=== PATIENT | male | born 1945 | race Hispanic/Latino ===

== ENCOUNTER → 2019-04-13 | Outpatient (CLI) | payer OTHER ==
[~2019-04-13] MED LIST: AMLO10TA7 PO; ASPI-555 PO; GLIP2.5T2 PO; LISI2.5T2 PO; METF-444 PO; PRAV40TA3 PO; PRAZ1CAP5 PO
== END | disposition home or self-care (01) ==
LOC: RAH 13:48
PROVIDERS: ATTEND Internal Medicine
DX: G31.89 Other specified degenerative diseases of nervous system (principal); R90.82 White matter disease, unspecified
CPT/HCPCS: 70450

== ENCOUNTER → 2019-08-02 | Outpatient (CLI) | payer OTHER ==
--- NOTE | 2019-08-02 11:20 | NUR ---
MBSS COMPLETED. -S/S OF ASPIRATION/PENETRATION. RECOMMEND MECHANICAL SOFT/CHOPPED, THIN LIQUIDS; PILLS WHOLE WITH LIQUIDS. Pt REPORTS HE IS CURRENTLY SEEING NEUROLOGIST AND LUMBER PLANER. SAFE SWALLOW PRECAUTIONS REVIEWED WITH Pt. GLAZIER APPRENTICE PROVIDED Pt WITH WRITTEN HANDOUT OF RESULTS AND RECOMMENDATIONS IN PORTUGUESE AND CHINESE. Addendum: 08/02/19 at 1125 by PETER SANTIAGO, [facility] Amended: Links added.
== END | disposition home or self-care (01) ==
LOC: RAH 09:35
PROVIDERS: ATTEND Internal Medicine Gastroenterology
DX: R13.12 Dysphagia, oropharyngeal phase (principal); I10 Essential (primary) hypertension; E11.9 Type 2 diabetes mellitus without complications; K21.9 Gastro-esophageal reflux disease without esophagitis
CPT/HCPCS: 74230; 92611

== ENCOUNTER 2020-07-31 09:24 | Observation (INO) | payer OTHER ==
[~2020-07-31] VITALS: Ht 180.3 cm; Wt 70.3 kg
[~2020-07-31 09:24] MED LIST changes: +AMLO-258 PO; -AMLO10TA7 PO; -ASPI-555 PO; +ASPI-556 PO
[2020-07-31 10:20] LABS: BASOPHILS % (AUTO) 0.3 % (0.0-5.0); EOSINOPHILS % (AUTO) 0.5 % (0.0-8.0); HEMATOCRIT 38.5 % (42-54); LYMPHOCYTES % (AUTO) 14.9 % (21.0-51.0); MEAN CORPUSCULAR HGB CONC 31.7 g/dL (32.0-36.0); MEAN CORPUSCULAR VOLUME 85.2 fL (79-99); MONOCYTES % (AUTO) 9.6 % (3.0-13.0); NEUTROPHILS % (AUTO) 74.4 % (40.0-77.0); PLATELET COUNT (AUTO) 176 K/uL (130-400); RED BLOOD CELL COUNT(AUTO) 4.52 MIL/uL (4.50-6.20); WHITE BLOOD COUNT (AUTO) 8.7 K/uL (4.8-10.8)
[2020-07-31 10:33] LABS: CREATININE 1.2 mg/dL (0.5-1.5); POTASSIUM 4.4 mmol/L (3.5-5.1)
[2020-07-31 10:36] LABS: INR 1.01 (0.85-1.15); PARTIAL THROMBOPLASTIN TIME 27.5 SEC (26.3-35.5); PROTHROMBIN TIME 10.9 SEC (9.6-11.6)
[2020-07-31 10:38] LABS: ALBUMIN 4.1 g/dL (3.5-5.0); BILIRUBIN,TOTAL 0.7 mg/dL (0.2-1.0); TOTAL PROTEIN, SERUM 7.5 g/dL (6.0-8.3)
[2020-07-31 11:52] LABS: APPEARANCE,URINE Clear (CLEAR); BILIRUBIN,URINE Negative (NEGATIVE); COLOR,URINE Yellow (YELLOW); GLUCOSE, URINE (UA) Negative (NEGATIVE); KETONES,URINE Trace mg/dL (NEGATIVE); LEUKOCYTE ESTERASE ,URINE Negative (NEGATIVE); NITRATE,URINE Negative (NEGATIVE); OCCULT BLOOD,URINE Negative (NEGATIVE); PROTEIN,URINE Trace mg/dL (NEGATIVE)
[2020-07-31 12:00] LABS: AMPHET/METH SCREEN,URINE NEGATIVE (NEGATIVE); BARBITURATE SCREEN, URINE NEGATIVE (NEGATIVE); BENZODIAZEPINES SCREEN,URINE NEGATIVE (NEGATIVE); CANNABINOID SCREEN,URINE NEGATIVE (NEGATIVE); COCAINE SCREEN,URINE NEGATIVE (NEGATIVE); OPIATE SCREEN,URINE NEGATIVE (NEGATIVE); PHENCYCLIDINE SCREEN,URINE NEGATIVE (NEGATIVE)
[2020-07-31 12:47] LABS: BACTERIA,URINE Few /HPF (None Seen); RBC,URINE 0-1 /HPF (0-1); SQUAMOUS EPITHELIAL CELL,UR 0-2 /HPF (0-2); WBC,URINE 0-1 /HPF (0-1)
[2020-07-31 16:41] VITALS: BP 149/74
[2020-07-31 19:00] VITALS: BP 127/58
[2020-07-31] MEDS ORDERED: FLUD0.1T2 PO (20:45)
[2020-07-31] MEDS ORDERED: ACET-66 PO (20:45)
[2020-07-31] MEDS ORDERED: OLME5TAB6 PO (20:45)
[2020-07-31] MEDS ORDERED: DEUT12TA PO (20:45)
[2020-07-31] MEDS ORDERED: BRIM5DRO4 OP (20:45)
[2020-07-31] MEDS ORDERED: FLUT16H NS (20:45)
[2020-07-31] MEDS ORDERED: ASPI-988 PO (20:45)
[2020-07-31] MEDS ORDERED: LATA2.5D14 OP (20:45)
[2020-07-31] MEDS ORDERED: POTA10CA44 PO (20:45)
[2020-07-31] MEDS ORDERED: PIND10TA2 PO (20:45)
[2020-07-31] MEDS ORDERED: FLUTICASONE PROPIONATE 50MCG/SPRAY 16 GM BOTTLE NS SCH (21:00)
[2020-07-31] MEDS: ATENOLOL 50 MG TABLET PO SCH (21:00)
[2020-07-31] MEDS ORDERED: BRIMONIDINE TARTRATE 0.2% 5 ML BOTTLE OP SCH (21:00)
[2020-07-31] MEDS: DEUTETRABENAZINE 12 MG PO SCH (21:00)
[2020-07-31] MEDS ORDERED: EXCEDRIN MIGRAINE PO SCH (21:00)
[2020-07-31] MEDS ORDERED: LATANOPROST 2.5 ML DROPS OP SCH (21:00)
[2020-07-31] MEDS ORDERED: ACETAMINOPHEN EXTRA STRENGTH 500 MG TABLET PO SCH (21:00)
[2020-07-31] MEDS: ATORVASTATIN CALCIUM 10 MG TABLET PO SCH (21:53)
[2020-07-31 23:20] VITALS: BP 137/66
[2020-08-01 03:00] VITALS: BP 134/55
[2020-08-01] MEDS: METFORMIN HCL 500 MG TABLET PO SCH ×2 (07:30→16:01)
[2020-08-01 08:32] VITALS: BP 128/54
[2020-08-01] MEDS: DEUTETRABENAZINE 12 MG PO SCH ×2 (09:00→19:44)
[2020-08-01] MEDS ORDERED: IOHEXOL 350 MG/ML 100ML INFUS..BTL IV ONE (11:35)
[2020-08-01 12:09] VITALS: BP 143/66
[2020-08-01 15:53] VITALS: BP 138/68
[2020-08-01] MEDS: ATENOLOL 50 MG TABLET PO SCH ×2 (16:00→19:44)
[2020-08-01] MEDS: POTASSIUM CHLORIDE 10 MEQ/TAB.SA PO SCH ×2 (16:01→16:03)
[2020-08-01] MEDS: LOSARTAN 50 MG TABLET PO SCH (16:01)
[2020-08-01] MEDS: ASPIRIN 81 MG EC TAB PO SCH (16:01)
[2020-08-01] MEDS: FLUDROCORTISONE ACETATE 0.1 MG TABLET PO SCH (16:02)
--- NOTE | 2020-08-01 16:32 | NUR ---
DCP CM met with pt and daughter in room discussed dc plans. Pt is independent prior to admission, lives at home with son who is a truck safety inspector mostly out, daughter lives close by. Pt has a cane. Denies any other equipments/services. Feels safe to go back home, son and daughter able to assist with transportation and needs as necessary. Daughter Juanita requesting provider, made are will inform Nehal ribeiro/AYDIN regarding request for provider at home. DC plan to home once stable. CM to contiue to follow up. Informed Nehal ribeiro/AYDIN of daughter's request for provider at home. As per Nehal will call pt and daughter in the morning. Addendum: 08/01/20 at 1636 by MARIAH WARD LVN CM Amended: Links added.
[2020-08-01 19:00] VITALS: BP 148/70
--- NOTE | 2020-08-01 19:00 | NUR ---
dr paulino informed of results of ct of head and neck, no orders received at this time.
[2020-08-01] MEDS: ATORVASTATIN CALCIUM 10 MG TABLET PO SCH (20:30)
[2020-08-02] VITALS: BP 133/62
[2020-08-02 04:00] VITALS: BP 145/70
[2020-08-02] MEDS: [UNRECOGNIZED DRUG - OTHER] MISC SCH ×4 (07:00→16:39)
[2020-08-02] MEDS: METFORMIN HCL 500 MG TABLET PO SCH ×2 (07:30→16:30)
[2020-08-02 08:00] VITALS: BP 163/70
[2020-08-02] MEDS: POTASSIUM CHLORIDE 10 MEQ/TAB.SA PO SCH ×2 (08:00→16:39)
[2020-08-02] MEDS: DEUTETRABENAZINE 12 MG PO SCH (08:18)
[2020-08-02] MEDS: ATENOLOL 50 MG TABLET PO SCH (08:24)
[2020-08-02] MEDS: ASPIRIN 81 MG EC TAB PO SCH (08:24)
[2020-08-02] MEDS: LOSARTAN 50 MG TABLET PO SCH (08:25)
[2020-08-02] MEDS: FLUDROCORTISONE ACETATE 0.1 MG TABLET PO SCH (08:25)
--- NOTE | 2020-08-02 09:19 | NUR ---
CONTACTED DR. LANGE RE POSSIBLE PT EVAL? BASED ON DR. JEONG ORDER AND STATE PATROL OFFICER NOTES RE MAX ASSIST TO [facility]. AWAITING RESPONSE
[2020-08-02 12:00] VITALS: BP 131/69
[2020-08-02 16:00] VITALS: BP 132/68
--- NOTE | 2020-08-02 17:00 | NUR ---
NOTE DISCHARGE INSTRUCTIONS GIVEN AT THIS TIME. REFER TO DC SUMMARY. HE IS TO GO TO DR LANGE WEDNESDAY AND SEE NEUROLOGIST OUTPATIENT FOR EEG OR POSSIBLY NEUROLOGIST IN [place] FOR ADJUSTMENT OF NEW MEDS.
== END 2020-08-02 18:10 | disposition home or self-care (01) ==
LOC: EDH 09:24 → EDHIP 13:00 → 3BH 16:09
PROVIDERS: ADMIT Internal Medicine; ATTEND Internal Medicine
DX: R55 Syncope and collapse (principal); I95.1 Orthostatic hypotension; G24.01 Drug induced subacute dyskinesia; I10 Essential (primary) hypertension; E11.9 Type 2 diabetes mellitus without complications; I25.10 Atherosclerotic heart disease of native coronary artery without angina pectoris; E78.5 Hyperlipidemia, unspecified; G20 Parkinson's disease; I63.9 Cerebral infarction, unspecified; G47.52 REM sleep behavior disorder; S80.01XA Contusion of right knee, initial encounter; S50.11XA Contusion of right forearm, initial encounter; S70.01XA Contusion of right hip, initial encounter; Z95.0 Presence of cardiac pacemaker; Z95.5 Presence of coronary angioplasty implant and graft; Z79.899 Other long term (current) drug therapy; W18.39XA Other fall on same level, initial encounter; Y93.01 Activity, walking, marching and hiking; Y92.002 Bathroom of unspecified non-institutional (private) residence as the place of occurrence of the external cause
CPT/HCPCS: 36415; 70450; 70496; 70498; 71045; 73090; 73502; 80053; 80305; 81001; 82550; 82948 ×8; 83721; 84484; 85025; 85610; 85730; 93005; 99285; G0378 ×12; Q9967

== ENCOUNTER → 2021-02-04 | Outpatient (CLI) | payer OTHER ==
[~2021-02-04] VITALS: Ht 180.3 cm; Wt 72.6 kg
[~2021-02-04] MED LIST changes: +ACET-66 PO; -AMLO-258 PO; +ASPI-988 PO; +BRIM5DRO4 OP; +DEUT12TA PO; +FLUD0.1T2 PO; +FLUT16H NS; -GLIP2.5T2 PO; +LATA2.5D14 OP; -LISI2.5T2 PO; +OLME5TAB6 PO; +PIND10TA2 PO; +POTA10CA44 PO; +REGADENOSON 0.4 MG/5 ML PF SYG IVP SCH
== END | disposition home or self-care (01) ==
LOC: SHCH 08:14
PROVIDERS: ATTEND Internal Medicine Cardiovascular Disease
DX: R07.9 Chest pain, unspecified (principal)
CPT/HCPCS: 78452; 93017; 96374; A9500 ×2

== ENCOUNTER 2021-04-22 05:40 | Day surgery (SDC) | payer OTHER ==
[2021-04-21 10:52] LABS: BASOPHILS % (AUTO) 0.3 % (0.0-5.0); HEMATOCRIT 38.2 % (42-54); LYMPHOCYTES % (AUTO) 22.3 % (21.0-51.0); MEAN CORPUSCULAR HEMOGLOBIN 27.9 pg (27.0-33.0); MEAN CORPUSCULAR HGB CONC 31.9 g/dL (32.0-36.0); MEAN CORPUSCULAR VOLUME 87.2 fL (79-99); MONOCYTES % (AUTO) 9.2 % (3.0-13.0); PLATELET COUNT (AUTO) 161 K/uL (130-400); RED BLOOD CELL COUNT(AUTO) 4.38 MIL/uL (4.50-6.20); RED CELL DISTRIBUTION WIDTH 14.2 % (11.0-15.5); WHITE BLOOD COUNT (AUTO) 6.4 K/uL (4.8-10.8)
[2021-04-21 10:54] LABS: APPEARANCE,URINE Clear (CLEAR); BILIRUBIN,URINE Negative (NEGATIVE); COLOR,URINE Yellow (YELLOW); GLUCOSE, URINE (UA) TRACE mg/dL (NEGATIVE); KETONES,URINE Trace mg/dL (NEGATIVE); LEUKOCYTE ESTERASE ,URINE Moderate (NEGATIVE); NITRATE,URINE Negative (NEGATIVE); OCCULT BLOOD,URINE Negative (NEGATIVE); PH,URINE 5.5 (5.0-8.0); PROTEIN,URINE Negative (NEGATIVE)
[2021-04-21 11:01] LABS: CREATININE 1.2 mg/dL (0.5-1.5); POTASSIUM 4.6 mmol/L (3.5-5.1)
[2021-04-21 11:21] LABS: BACTERIA,URINE Rare /HPF (None Seen); RBC,URINE 0-1 /HPF (0-1)
[2021-04-21 11:22] LABS: CALCIUM OXALATE CRYSTALS,UR Few /LPF (None Seen); SQUAMOUS EPITHELIAL CELL,UR Rare /HPF (0-2)
[2021-04-21 11:29] LABS: INR 1.02 (0.85-1.15); PROTHROMBIN TIME 11.1 SEC (9.6-11.6)
[2021-04-21 11:30] LABS: PARTIAL THROMBOPLASTIN TIME 27.4 SEC (26.3-35.5)
[2021-04-21 12:41] VITALS: BP 127/70
[~2021-04-22] VITALS: Ht 180.3 cm; Wt 73.3 kg
[2021-04-22] VITALS (17 sets, daily range): BP systolic 121–182; BP diastolic 59–89
[~2021-04-22 05:40] MED LIST changes: -ACET-66 PO; -ASPI-988 PO; -BRIM5DRO4 OP; -DEUT12TA PO; +DEUT9TAB PO; -FLUT16H NS; +NAPR-1023 PO; -OLME5TAB6 PO; -PRAZ1CAP5 PO; -REGADENOSON 0.4 MG/5 ML PF SYG IVP SCH
[2021-04-22] MEDS ORDERED: 0.9%NACL 1000ML 1,000 ML IV SCH ×2 (08:00→10:30)
[2021-04-22] MEDS ORDERED: NICARDIPINE 25MG INJ IV ONE (09:02)
[2021-04-22] MEDS ORDERED: IOHEXOL-350 50ML VIAL IV ONE (09:02)
[2021-04-22] MEDS ORDERED: NITROGLYCERIN 2 MG VIAL IV ONE (09:02)
[2021-04-22] MEDS ORDERED: HEPARIN 10,000 UNIT/10ML (1,000 UNIT/ML) VIAL ONE (09:02)
[2021-04-22] MEDS ORDERED: LIDOCAINE HCL 400MG/20ML VIAL ONE (09:03)
[2021-04-22] MEDS ORDERED: MIDAZOLAM HCL 1 MG/ML 2ML VIAL ONE (09:03)
[2021-04-22] MEDS ORDERED: FENTANYL CITRATE PF 50 MCG/1 ML 2ML VIAL ONE (09:03)
[2021-04-22] MEDS ORDERED: IOHEXOL 350 MG/ML 100ML INFUS..BTL IV ONE (09:05)
[2021-04-22] MEDS ORDERED: SODIUM BICARB 50MEQ 50ML VIAL 50 ML ONE (09:08)
[2021-04-22] MEDS ORDERED: LABETALOL 20MG VIAL IV ONE (09:50)
[2021-04-22] MEDS ORDERED: ENALAPRILAT DIHYDRATE 1.25 MG/ML 2ML VIAL IVP ONE ×2 (10:07→10:14)
[2021-04-22] MEDS ORDERED: DEXTROSE 50%-WATER 50 ML DISP.SYRIN IV PRN (10:30)
[2021-04-22] MEDS ORDERED: GLUCAGON 1MG KIT 1 MG ML IM PRN (10:30)
[2021-04-22] MEDS ORDERED: INSULIN HUMULIN R 100 UNIT/ML 3ML SQ SCH (11:30)
[2021-04-22] MEDS ORDERED: HYDRALAZINE 20MG/ML VIAL ONE (12:49)
[2021-04-22] MEDS ORDERED: HYDRALAZINE 20MG/ML VIAL IV SCH (14:00)
== END 2021-04-22 15:30 | disposition home or self-care (01) ==
LOC: DAH 05:40
PROVIDERS: ATTEND Internal Medicine Cardiovascular Disease
DX: I25.119 Atherosclerotic heart disease of native coronary artery with unspecified angina pectoris (principal); T82.855A Stenosis of coronary artery stent, initial encounter; I25.82 Chronic total occlusion of coronary artery; I11.0 Hypertensive heart disease with heart failure; I50.22 Chronic systolic (congestive) heart failure; E11.9 Type 2 diabetes mellitus without complications; G20 Parkinson's disease; I49.5 Sick sinus syndrome; G47.33 Obstructive sleep apnea (adult) (pediatric); K21.9 Gastro-esophageal reflux disease without esophagitis; I25.2 Old myocardial infarction; E78.5 Hyperlipidemia, unspecified; Z79.899 Other long term (current) drug therapy; Z79.01 Long term (current) use of anticoagulants; Z95.5 Presence of coronary angioplasty implant and graft; Z79.82 Long term (current) use of aspirin; Z79.84 Long term (current) use of oral hypoglycemic drugs; Z82.49 Family history of ischemic heart disease and other diseases of the circulatory system; Y83.8 Other surgical procedures as the cause of abnormal reaction of the patient, or of later complication, without mention of misadventure at the time of the procedure
CPT/HCPCS: 36415; 71045; 80048; 81001; 82948 ×2; 85025; 85610; 85730; 87088; 93005; 93458; A4215; A4216; A4221; A4222; A4223 ×3; A4335; A4663; C1760; C1894 ×2; J0360; J1644; J2250; J3010; J3490 ×6; J7030; Q9965; Q9967 ×2; 96365; 96366; 96374; 99156; 99157

== ENCOUNTER 2022-11-07 12:26 | Emergency (ER) | payer OTHER ==
[~2022-11-07] VITALS: Ht 177.8 cm; Wt 80.1 kg
[~2022-11-07 12:26] MED LIST changes: +BRIM5DRO4 OP; +DIPH25TA51 PO; -POTA10CA44 PO; +POTA10CA45 PO; +[UNRECOGNIZED DRUG - CODE] PO
[2022-11-07 13:12] LABS: BASOPHILS % (AUTO) 0.5 % (0.0-5.0); EOSINOPHILS % (AUTO) 1.4 % (0.0-8.0); HEMATOCRIT 28.1 % (42-54); LYMPHOCYTES % (AUTO) 27.1 % (21.0-51.0); MEAN CORPUSCULAR HEMOGLOBIN 24.7 pg (27.0-33.0); MEAN CORPUSCULAR HGB CONC 30.6 g/dL (32.0-36.0); MEAN CORPUSCULAR VOLUME 80.7 fL (79-99); MONOCYTES % (AUTO) 9.3 % (3.0-13.0); NEUTROPHILS % (AUTO) 61.4 % (40.0-77.0); PLATELET COUNT (AUTO) 239 K/uL (130-400); RED BLOOD CELL COUNT(AUTO) 3.48 MIL/uL (4.50-6.20); RED CELL DISTRIBUTION WIDTH 17.1 % (11.0-15.5); WHITE BLOOD COUNT (AUTO) 7.9 K/uL (4.8-10.8)
[2022-11-07 13:22] LABS: CREATININE 0.9 mg/dL (0.5-1.5); POTASSIUM 4.2 mmol/L (3.5-5.1)
[2022-11-07 13:30] LABS: ALBUMIN 3.3 g/dL (3.5-5.0); TOTAL PROTEIN, SERUM 7.7 g/dL (6.0-8.3)
[2022-11-07 13:56] LABS: APPEARANCE,URINE CLEAR (CLEAR); BILIRUBIN,URINE NEGATIVE (NEGATIVE); COLOR,URINE YELLOW (YELLOW); GLUCOSE, URINE (UA) NEGATIVE (NEGATIVE); KETONES,URINE NEGATIVE (NEGATIVE); LEUKOCYTE ESTERASE ,URINE NEGATIVE Leu/uL (NEGATIVE); NITRATE,URINE NEGATIVE (NEGATIVE); OCCULT BLOOD,URINE NEGATIVE (NEGATIVE); PROTEIN,URINE NEGATIVE (NEGATIVE); UROBILINOGEN,URINE 0.2 mg/dL (0.2-1.0)
[2022-11-07] MEDS ORDERED: ACET-2893 PO (17:14)
[2022-11-07 17:27] VITALS: BP 148/62
== END 2022-11-07 17:31 | disposition home or self-care (01) ==
LOC: EDH 12:26
DX: S09.90XA Unspecified injury of head, initial encounter (principal); T42.8X5A Adverse effect of antiparkinsonism drugs and other central muscle-tone depressants, initial encounter; M54.2 Cervicalgia; E11.9 Type 2 diabetes mellitus without complications; Z79.899 Other long term (current) drug therapy; Z79.84 Long term (current) use of oral hypoglycemic drugs; Z79.82 Long term (current) use of aspirin; Z98.890 Other specified postprocedural states; Z95.1 Presence of aortocoronary bypass graft; W01.0XXA Fall on same level from slipping, tripping and stumbling without subsequent striking against object, initial encounter; Y93.89 Activity, other specified; Y92.89 Other specified places as the place of occurrence of the external cause; Y99.8 Other external cause status
CPT/HCPCS: 36415; 70450; 72125; 80053; 81003; 84484; 85025; 93005

== ENCOUNTER → 2022-12-29 | Outpatient (CLI) | payer OTHER ==
[~2022-12-29] MED LIST changes: +ACET-2893 PO
[2022-12-29 12:22] LABS: CREATININE 1.3 mg/dL (0.5-1.5); POTASSIUM 4.8 mmol/L (3.5-5.1)
== END | disposition home or self-care (01) ==
LOC: LAB 08:48
PROVIDERS: ATTEND Internal Medicine Cardiovascular Disease
DX: I11.0 Hypertensive heart disease with heart failure (principal); I50.42 Chronic combined systolic (congestive) and diastolic (congestive) heart failure; I25.10 Atherosclerotic heart disease of native coronary artery without angina pectoris
CPT/HCPCS: 36415; 80048; 83880

== ENCOUNTER → 2023-01-18 | Outpatient (CLI) | payer OTHER ==
[~2023-01-18] MED LIST changes: -BRIM5DRO4 OP; +BRIM5DRO5 OP
[2023-01-18 13:02] LABS: CREATININE 1.3 mg/dL (0.5-1.5); POTASSIUM 4.8 mmol/L (3.5-5.1)
== END | disposition home or self-care (01) ==
LOC: LAB 08:39
PROVIDERS: ATTEND Internal Medicine Cardiovascular Disease
DX: I50.42 Chronic combined systolic (congestive) and diastolic (congestive) heart failure (principal)
CPT/HCPCS: 36415; 80048

== ENCOUNTER → 2023-08-23 | Outpatient (CLI) | payer OTHER ==
[~2023-08-23] MED LIST changes: -POTA10CA45 PO; +POTA10CA85 PO
[2023-08-23 12:18] LABS: BASOPHILS # (AUTO) 0.03 K/uL (0.00-0.20); BASOPHILS % (AUTO) 0.6 % (0.0-5.0); HEMATOCRIT 42.1 % (42-54); IMMATURE GRANULOCYTE ABSOLUTE 0.01 K/uL (0-1); LYMPHOCYTES % (AUTO) 40.1 % (21.0-51.0); MEAN CORPUSCULAR HEMOGLOBIN 27.7 pg (27.0-33.0); MEAN CORPUSCULAR HGB CONC 31.4 g/dL (32.0-36.0); MEAN CORPUSCULAR VOLUME 88.4 fL (79-99); MONOCYTES # (AUTO) 0.4 K/uL (0.1-1.0); NEUTROPHILS # (AUTO) 2.5 K/uL (1.8-7.7); NEUTROPHILS % (AUTO) 50.1 % (40.0-77.0); PLATELET COUNT (AUTO) 176 K/uL (130-400); RED BLOOD CELL COUNT(AUTO) 4.76 MIL/uL (4.50-6.20); RED CELL DISTRIBUTION WIDTH 15.6 % (11.0-15.5)
[2023-08-23 12:30] LABS: BILIRUBIN,TOTAL 0.7 mg/dL (0.2-1.0); CREATININE 1.3 mg/dL (0.5-1.5); POTASSIUM 4.7 mmol/L (3.5-5.1); TOTAL PROTEIN, SERUM 7.5 g/dL (6.0-8.3)
== END | disposition home or self-care (01) ==
LOC: LAB 08:17
PROVIDERS: ATTEND Internal Medicine Cardiovascular Disease
DX: E11.40 Type 2 diabetes mellitus with diabetic neuropathy, unspecified (principal); M54.30 Sciatica, unspecified side
CPT/HCPCS: 36415; 80053; 80061; 85025

== ENCOUNTER → 2024-02-15 | Outpatient (CLI) | payer OTHER ==
[2024-02-15 12:01] LABS: BASOPHILS # (AUTO) 0.03 K/uL (0.00-0.20); BASOPHILS % (AUTO) 0.6 % (0.0-5.0); EOSINOPHILS # (AUTO) 0.08 K/uL (0.00-0.70); EOSINOPHILS % (AUTO) 1.6 % (0.0-8.0); HEMATOCRIT 37.2 % (42-54); IMMATURE GRANULOCYTE ABSOLUTE 0.01 K/uL (0-1); LYMPHOCYTES # (AUTO) 1.5 K/uL (1.0-4.8); LYMPHOCYTES % (AUTO) 29.5 % (21.0-51.0); MEAN CORPUSCULAR HEMOGLOBIN 28.7 pg (27.0-33.0); MEAN CORPUSCULAR HGB CONC 32.5 g/dL (32.0-36.0); MEAN CORPUSCULAR VOLUME 88.2 fL (79-99); MONOCYTES # (AUTO) 0.4 K/uL (0.1-1.0); MONOCYTES % (AUTO) 7.2 % (3.0-13.0); NEUTROPHILS # (AUTO) 3.1 K/uL (1.8-7.7); NEUTROPHILS % (AUTO) 60.9 % (40.0-77.0); PLATELET COUNT (AUTO) 164 K/uL (130-400); RED BLOOD CELL COUNT(AUTO) 4.22 MIL/uL (4.50-6.20); RED CELL DISTRIBUTION WIDTH 14.4 % (11.0-15.5); WHITE BLOOD COUNT (AUTO) 5.2 K/uL (4.8-10.8)
[2024-02-15 12:14] LABS: ALBUMIN 4.2 g/dL (3.5-5.0); BILIRUBIN,TOTAL 0.6 mg/dL (0.2-1.0); CREATININE 1.3 mg/dL (0.5-1.3); POTASSIUM 4.5 mmol/L (3.5-5.1); TOTAL PROTEIN, SERUM 7.3 g/dL (6.0-8.3)
== END | disposition home or self-care (01) ==
LOC: LAB 08:57
PROVIDERS: ATTEND Internal Medicine Cardiovascular Disease
DX: E11.40 Type 2 diabetes mellitus with diabetic neuropathy, unspecified (principal); M54.30 Sciatica, unspecified side
CPT/HCPCS: 36415; 80053; 80061; 85025

== ENCOUNTER → 2024-09-14 | Outpatient (CLI) | payer OTHER ==
[~2024-09-14] MED LIST changes: -POTA10CA85 PO; +POTA10CA95 PO
[2024-09-14 12:37] LABS: BILIRUBIN,TOTAL 0.4 mg/dL (0.2-1.0); CREATININE 1.3 mg/dL (0.5-1.3); POTASSIUM 4.9 mmol/L (3.5-5.1); TOTAL PROTEIN, SERUM 7.3 g/dL (6.0-8.3)
== END | disposition home or self-care (01) ==
LOC: LAB 08:22
PROVIDERS: ATTEND Internal Medicine Cardiovascular Disease
DX: I50.22 Chronic systolic (congestive) heart failure (principal); E78.2 Mixed hyperlipidemia
CPT/HCPCS: 36415; 80053; 80061

== ENCOUNTER → 2024-11-13 | Outpatient (CLI) | payer OTHER ==
[~2024-11-13] MED LIST changes: -NAPR-1023 PO; +NAPR-1194 PO
--- NOTE | 2024-11-16 08:38 | HMCSR ---
APPROVED REPORT EXAM: Two-dimensional and M-mode echocardiogram with Doppler and color Doppler. INDICATION ICD: I49.5 Sick sinus syndrome 2D Dimensions RVDd5.2 cmLVEF(%)50.2 (>50%)LVED Vol(simp.)170.0 mL IVSd0.9 (0.7-1.1cm)FS(%)26 %LVES Vol(simp.)94.0 mL LVDd5.7 (3.8-5.6cm)Ao Root(2D)3.6 (2.0-3.7cm)LVEF(%, simp.)45 % PWd1.0 (0.7-1.1cm)LVOT diam2.2 (1.8-2.4cm)LA ESV INDEX (BP)57.20 mL/m2 LVDs4.2 (2.5-4.0cm)IVC diam2.5 cm Aortic Valve AoV Vmax1.7 m/Jaciel Peak GR11.8 mmHgLVOT Vmax0.9 m/s AoV VTI0.4 mAo Mean GR6.1 mmHgLVOT VTI0.18 m URI (VMAX)1.8 cm2Al P1/2T858 msAVA (VTI) 1.8 cm2 Mitral Valve MV E Vmax91.3 cm/sDECEL Hxnn500 ms MV A Vmax49.3 cm/sP 1/2 T55 ms E/A ratio1.9MVA (PHT)4.0 cm2 MR Max PG101 mmHg TDI E/E' Syvqry22.7E/E' Mrobifz74.4 Pulmonary Valve PV Vmax1.3 m/sPV VTI0.28 mPV Mean GR4 mmHg PV Peak GR6.4 mmHg Tricuspid Valve TR Vmax2.9 m/sRAP (EST) 8 zhZxRWSX98.2 mmHg TR Peak GR34.2 mmHg Left Ventricle The left ventricle is mildly dilated. There is normal left ventricular wall thickness. LVEF is 45-50% . Grade 2 diastolic dysfunction. Right Ventricle The right ventricle is severely dilated. Right ventricular systolic function is moderately reduced. D evice lead is present in the right atrium and ventricle. Atria The left atrium is severely dilated. ASD is present. The right atrium is moderately dilated. Aortic Valve Aortic valve is trileaflet. Aortic valve leaflets are sclerotic but open well. Trace aortic regurgita tion. Calculated aortic valve area is 1.8 cm2 with maximum pressure gradient of 11.8 mmHg and mean pr essure gradient of 6.1 mmHg. Mitral Valve Mitral valve leaflets are mildly sclerotic but open well. Mitral annular calcification is mild. Olamide l regurgitation is mild. There is no mitral valve stenosis. Tricuspid Valve The tricuspid valve leaflets appear normal. There is mild tricuspid regurgitation. Right ventricular systolic pressure is estimated at 40-50 mmHg. Pulmonic Valve The pulmonic valve is mildly sclerotic but opens well. There is trace pulmonic valvular regurgitation . Great Vessels The aortic root is normal in size. IVC is dilated and collapses >50% with inspiration. Pericardium No pericardial effusion. Conclusion The left ventricle is mildly dilated. LVEF is 45-50%. Grade 2 diastolic dysfunction. The right ventricle is severely dilated. Right ventricular systolic function is moderately reduced. Device lead is present in the right atrium and ventricle. The right atrium is moderately dilated. The left atrium is severely dilated. ASD is present. Trace aortic regurgitation. Mild aortic stenosis. Mitral annular calcification is mild. Mitral regurgitation is mild. There is mild tricuspid regurgitation. Right ventricular systolic pressure is estimated at 40-50 mmHg. IVC is dilated and collapses >50% with inspiration.
== END | disposition home or self-care (01) ==
LOC: SHCH 14:25
PROVIDERS: ATTEND Student in an Organized Health Care Education/Training Program
DX: I08.8 Other rheumatic multiple valve diseases (principal); I49.5 Sick sinus syndrome; I11.9 Hypertensive heart disease without heart failure
CPT/HCPCS: 93306

== ENCOUNTER 2024-11-23 05:41 | Day surgery (SDC) | payer OTHER ==
[2024-11-21 09:54] LABS: BASOPHILS # (AUTO) 0.03 K/uL (0.00-0.20); BASOPHILS % (AUTO) 0.7 % (0.0-5.0); EOSINOPHILS # (AUTO) 0.05 K/uL (0.00-0.70); EOSINOPHILS % (AUTO) 1.2 % (0.0-8.0); HEMATOCRIT 35.3 % (42-54); IMMATURE GRANULOCYTE ABSOLUTE 0.01 K/uL (0-1); LYMPHOCYTES # (AUTO) 1.1 K/uL (1.0-4.8); LYMPHOCYTES % (AUTO) 26.5 % (21.0-51.0); MEAN CORPUSCULAR HGB CONC 31.4 g/dL (32.0-36.0); MEAN CORPUSCULAR VOLUME 89.1 fL (79-99); MONOCYTES # (AUTO) 0.3 K/uL (0.1-1.0); NEUTROPHILS # (AUTO) 2.6 K/uL (1.8-7.7); NEUTROPHILS % (AUTO) 63.4 % (40.0-77.0); PLATELET COUNT (AUTO) 144 K/uL (130-400); RED BLOOD CELL COUNT(AUTO) 3.96 MIL/uL (4.50-6.20); RED CELL DISTRIBUTION WIDTH 14.5 % (11.0-15.5); WHITE BLOOD COUNT (AUTO) 4.1 K/uL (4.8-10.8)
[2024-11-21 09:59] VITALS: BP 134/68; PULSE 65; RESP 14; TEMP 98
[2024-11-21 10:03] LABS: CREATININE 1.2 mg/dL (0.5-1.3); POTASSIUM 4.7 mmol/L (3.5-5.1)
[2024-11-21 10:08] LABS: INR 1.07 (0.85-1.15); PROTHROMBIN TIME 11.9 SEC (9.6-11.6)
[2024-11-21 10:09] LABS: PARTIAL THROMBOPLASTIN TIME 32.3 SEC (26.3-35.5)
--- NOTE | 2024-11-21 10:09 | EKG ---
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
[~2024-11-23] VITALS: Ht 175.3 cm; Wt 75.4 kg
[2024-11-23] VITALS (8 sets, daily range): BP systolic 125–178; BP diastolic 63–94; PULSE 63–78; RESP 15–22; TEMP 97.7–98.5
[~2024-11-23 05:41] MED LIST changes: -ACET-2893 PO; +AMLO-257 PO; +ASPI-1443 PO; -ASPI-556 PO; -BRIM5DRO5 OP; +BRIM5DRO5 OU; +CARB100T61 PO; -DEUT9TAB PO; -DIPH25TA51 PO; -FLUD0.1T2 PO; -LATA2.5D14 OP; +LATA2.5D14 OU; -NAPR-1194 PO; -POTA10CA95 PO; -PRAV40TA3 PO; +ROSU40TA88 PO; +SERT-439 PO; +SERT-440 PO; +VALS320T16 PO; -[UNRECOGNIZED DRUG - CODE] PO
[2024-11-23] MEDS: 0.9%NACL 1000ML 1,000 ML IV SCH (06:45)
[2024-11-23] MEDS ORDERED: LIDOCAINE HCL 1% MDV 50ML VIAL ONE (07:15)
[2024-11-23] MEDS ORDERED: BUPIvacaine/PF 0.25% 30ML VIAL IJ ONE (07:15)
[2024-11-23] MEDS ORDERED: ceFAZolin SODIUM 1 GM VIAL ONE (07:15)
[2024-11-23] MEDS ORDERED: MIDAZOLAM HCL 1 MG/ML 2ML VIAL ONE (07:44)
[2024-11-23] MEDS ORDERED: FENTanyl CITRate PF 50 MCG/1 ML 2ML VIAL ONE (07:44)
[2024-11-23] MEDS ORDERED: BACITRACIN 1 EACH PACKET TP ONE (08:47)
[2024-11-23] MEDS ORDERED: TRAM50TA4 PO (09:04)
--- NOTE | 2024-11-23 09:20 | NUR ---
DRESSING: DRESSING TO LEFT UPPER CHEST DRY/INTACT WITH NO ACTIVE BLEEDING PRESENT. NO REDNESS/SWELLING NOTED TO SURROUNDING AREA LEFT CHEST.
[2024-11-23] MEDS ORDERED: acetaMINOPHEN 500 MG TABLET PO PRN (09:30)
[2024-11-23] MEDS ORDERED: acetaMINOPHEN WITH coDEINE 1 TAB TAB PO PRN ×3 (09:30)
--- NOTE | 2024-11-23 09:35 | NUR ---
DRESSING: DRESSING TO LEFT UPPER CHEST REMAINS DRY/INTACT WITH NO ACTIVE BLEEDING PRESENT. NO REDNESS/SWELLING NOTED TO SURROUNDING AREA .
--- NOTE | 2024-11-23 09:50 | NUR ---
DRESSING: DRESSING TO LEFT UPPER CHEST REMAINS DRY/INTACT WITH NO ACTIVE BLEEDING PRESENT. NO REDNESS/SWELLING NOTED TO SURROUNDING AREA LEFT CHEST
--- NOTE | 2024-11-23 10:05 | NUR ---
DRESSING: DRESSING TO LEFT UPPER CHEST REMAINS DRY/INTACT WITH NO ACTIVE BLEEDING PRESENT. NO REDNESS/SWELLING NOTED TO SURROUNDING AREA.
--- NOTE | 2024-11-23 10:15 | NUR ---
DRESSING: DRESSING TO LEFT UPPER CHEST REMAINS DRY/INTACT WITH NO ACTIVE BLEEDING PRESENT. NO REDNESS/SWELLING NOTED TO SURROUNDING AREA LEFT CHEST.
--- NOTE | 2024-11-23 10:45 | NUR ---
DRESSING: DRESSING TO LEFT UPPER CHEST REMAINS DRY/INTACT WITH NO ACTIVE BLEEDING PRESENT. NO REDNESS/SWELLING NOTED OT SURROUNDING AREA LEFT CHEST.
--- NOTE | 2024-11-23 11:22 | NUR ---
DRESSING: DRESSING TO LEFT UPPER CHEST REMAINS DRY/INTACT WITH NO ACTIVE BLEEDING PRESENT. NO REDNESS/SWELLING NOTED TO SURROUNDING AREA LEFT CHEST.
== END 2024-11-23 11:25 | disposition home or self-care (01) ==
LOC: DAH 05:41
PROVIDERS: ATTEND Internal Medicine Cardiovascular Disease
DX: Z45.010 Encounter for checking and testing of cardiac pacemaker pulse generator [battery] (principal); I49.5 Sick sinus syndrome; I45.10 Unspecified right bundle-branch block; I11.0 Hypertensive heart disease with heart failure; I50.22 Chronic systolic (congestive) heart failure; E78.5 Hyperlipidemia, unspecified; E11.9 Type 2 diabetes mellitus without complications; I25.10 Atherosclerotic heart disease of native coronary artery without angina pectoris; Z95.1 Presence of aortocoronary bypass graft; Z79.82 Long term (current) use of aspirin; Z79.84 Long term (current) use of oral hypoglycemic drugs; Z79.899 Other long term (current) drug therapy; G47.33 Obstructive sleep apnea (adult) (pediatric); Z99.89 Dependence on other enabling machines and devices
CPT/HCPCS: 80048; 85025; 85610; 85730; 36415; 93005; 33228; 82948 ×2; C1785; J3010; J0690; J0665; J2250; J3490; A4215; A6251; A4222; A4221; A4663; A4216; A6258; A4606; A4223 ×3; 99156; 99157